=== PATIENT | female | born 1995 | race Caucasian/White ===

== ENCOUNTER 2023-06-25 17:04 | Emergency (ER) | payer MEDICAID ==
[~2023-06-25] VITALS: Ht 157.5 cm; Wt 71.8 kg
[2023-06-25 17:21] VITALS: BP 125/86; PULSE 64; RESP 16; TEMP 97.9; O2SAT 99
[2023-06-25] MEDS ORDERED: ACETAMINOPHEN EXTRA STRENGTH 500 MG TAB PO ONE (17:35)
[2023-06-25] MEDS ORDERED: IBUP-2213 PO (18:36)
[2023-06-25] MEDS ORDERED: ACET-10509 PO (18:36)
[2023-06-25 18:56] VITALS: BP 125/86; PULSE 64; RESP 16; TEMP 97.9; O2SAT 99
== END 2023-06-25 18:57 | disposition home or self-care (01) ==
LOC: MED 17:04
DX: S62.633A Displaced fracture of distal phalanx of left middle finger, initial encounter for closed fracture (principal); S60.132A Contusion of left middle finger with damage to nail, initial encounter; Z79.899 Other long term (current) drug therapy; W23.0XXA Caught, crushed, jammed, or pinched between moving objects, initial encounter; Y93.89 Activity, other specified; Y92.098 Other place in other non-institutional residence as the place of occurrence of the external cause; Y99.8 Other external cause status
CPT/HCPCS: 73140; 99283